=== PATIENT | female | born 1950 | race Caucasian/White ===

== ENCOUNTER 2019-01-27 16:37 | Emergency (ER) | payer MEDICAID ==
[~2019-01-27] VITALS: Ht 167.6 cm; Wt 77.0 kg
[2019-01-27 17:29] LABS: CLARITY,URINE CLOUDY (Clear); COLOR,URINE YELLOW (Yellow); GLUCOSE, URINE 500 mg/dl (Neg); KETONES,URINE NEGATIVE (Neg); LEUKOCYTE ESTERASE ,URINE LARGE (Neg); NITRITES, URINE POSITIVE (Neg); OCCULT BLOOD,URINE LARGE (Neg); PROTEIN,URINE 100 mg/dl (Neg); UROBILINOGEN,URINE 0.2 E.U/dL (0.2-1.0)
[2019-01-27 17:32] LABS: UA COLLECTION TYPE CLN CATCH MIDSTREAM
[2019-01-27 17:43] LABS: SQUAMOUS EPITHELIAL CELL,UR MANY /LPF (FEW)
[2019-01-27 17:45] LABS: BACTERIA,URINE 4+ /HPF (Neg); RBC,URINE TNTC /HPF (0-2); WBC,URINE TNTC /HPF (0-4)
[2019-01-27] MEDS ORDERED: normal saline 1000ML IV soln IVB ONE (18:00)
[2019-01-27] MEDS ORDERED: morphine 4 MG/ML inj SYRINge IV ONE (18:00)
[2019-01-27] MEDS ORDERED: famotidine/PF 10 mg/ml inj IV ONE (18:00)
[2019-01-27 18:42] LABS: BASOPHILS % (AUTO) 0.4 % (0-1); EOSINOPHILS # (AUTO) 0.1 X10'3 (0-0.9); EOSINOPHILS % (AUTO) 0.8 % (0-6); HEMATOCRIT 38.7 % (35.0-45.0); HEMOGLOBIN 13.2 g/dl (12.0-16.0); MEAN CORPUSCULAR HEMOGLOBIN 31.4 PG (27.0-31.0); MEAN CORPUSCULAR VOLUME 92.3 FL (78-98); MEAN PLATELET VOLUME 8.7 FL (7.4-10.4); MONOCYTES % (AUTO) 8.6 % (2-12); NEUTROPHILS % (AUTO) 82.2 % (42-75); PLATELET COUNT 244 X10'3 (140-440); RED BLOOD COUNT 4.19 X10'6 (4.20-5.60); RED CELL DISTRIBUTION WIDTH 13.7 % (11.5-14.5); WHITE BLOOD COUNT 12.2 X10'3 (4.5-11.0)
[2019-01-27 18:52] LABS: ALANINE AMINOTRANSFERASE 19 U/L (12-78); ALBUMIN 3.7 G/DL (3.4-5.0); ALBUMIN/GLOBULIN RATIO 0.9 (1.1-1.5); ALKALINE PHOSPHATASE 85 IU/L (46-116); ANION GAP 7 (8-16); ASPARTATE AMINO TRANSFERASE 20 U/L (10-37); BILIRUBIN,TOTAL 0.7 MG/DL (0.1-1.0); BLOOD UREA NITROGEN 14 MG/DL (7-18); BUN/CREATININE RATIO 17.3 (6.6-38.0); CALCIUM 9.7 MG/DL (8.5-10.1); CHLORIDE 107 MMOL/L (99-107); CREATININE 0.81 MG/DL (0.40-0.90); GLUCOSE 134 MG/DL (70-104); POTASSIUM 3.7 MMOL/L (3.5-5.1); SODIUM 144 MMOL/L (135-145); TOTAL PROTEIN 7.9 G/DL (6.4-8.2); eGFR 71 ML/MIN
[2019-01-27 19:41] LABS: CLARITY,URINE CLOUDY (Clear); COLOR,URINE YELLOW (Yellow); GLUCOSE, URINE 100 mg/dl (Neg); KETONES,URINE NEGATIVE (Neg); LEUKOCYTE ESTERASE ,URINE MODERATE (Neg); NITRITES, URINE NEGATIVE (Neg); OCCULT BLOOD,URINE LARGE (Neg); PROTEIN,URINE 30 mg/dl (Neg); UROBILINOGEN,URINE 0.2 E.U/dL (0.2-1.0)
[2019-01-27 19:46] LABS: BACTERIA,URINE 3+ /HPF (Neg); UA COLLECTION TYPE STRAIGHT CATH; WBC,URINE 50-100 /HPF (0-4)
[2019-01-27 19:47] LABS: SQUAMOUS EPITHELIAL CELL,UR FEW /LPF (FEW); WBC CLUMPS,URINE FEW /HPF (NEGATIVE)
[2019-01-27] MEDS ORDERED: CefTRIAXone/D5W-Rocephin 1gm 50 ML IV ONE (20:20)
[2019-01-27] MEDS ORDERED: SULF1TAB49 PO (21:05)
[2019-01-27 21:15] VITALS: BP 148/60
== END 2019-01-27 21:31 | disposition home or self-care (01) ==
LOC: ER 16:38
DX: N39.0 Urinary tract infection, site not specified (principal); R82.71 Bacteriuria; R42 Dizziness and giddiness; E11.9 Type 2 diabetes mellitus without complications; Z60.2 Problems related to living alone; Z79.2 Long term (current) use of antibiotics
CPT/HCPCS: 36415; 80053; 81001; 85025; 87077; 87088; 87186; 96361; 96365; 96375; 99283; J0696; J2270; J3490; J7040

== ENCOUNTER 2020-01-28 15:07 | Emergency (ER) | payer BC, MEDICARE ==
[~2020-01-28] VITALS: Ht 167.6 cm; Wt 165.0 kg
[2020-01-28 15:21] VITALS: BP 154/70
[2020-01-28] MEDS ORDERED: AZIT-63 PO (15:31)
== END 2020-01-28 15:53 | disposition home or self-care (01) ==
LOC: ER 15:09
DX: J40 Bronchitis, not specified as acute or chronic (principal); E11.9 Type 2 diabetes mellitus without complications; Z60.2 Problems related to living alone; Z79.899 Other long term (current) drug therapy
CPT/HCPCS: 99283

== ENCOUNTER 2020-07-16 19:57 | Inpatient (IN) | payer BC, MEDICARE ==
[~2020-07-16] VITALS: Ht 167.6 cm; Wt 72.7 kg
[2020-07-16] MEDS ORDERED: temazepam 15mg capsule PO PRN (21:00)
--- NOTE | 2020-07-16 21:26 | NUR ---
CT read completed. Dr. Liu ordering CT of spine now. Pt with family at bedside.
--- NOTE | 2020-07-16 22:08 | NUR ---
pt up to ambulating with front wheeled walker, daughter sba. Pt gonig to BR to provide urine sample.
[2020-07-16 22:18] LABS: BASOPHILS # (AUTO) 0.1 X10'3 (0-0.2); BASOPHILS % (AUTO) 0.8 % (0-1); EOSINOPHILS # (AUTO) 0.1 X10'3 (0-0.9); HEMATOCRIT 36.7 % (35.0-45.0); HEMOGLOBIN 12.6 g/dl (12.0-16.0); LYMPHOCYTES # (AUTO) 1.6 X10'3 (1.1-4.8); LYMPHOCYTES % (AUTO) 22.8 % (21-51); MEAN CORPUSCULAR HEMOGLOBIN 31.4 PG (27.0-31.0); MEAN CORPUSCULAR HGB CONC 34.3 g/dL (33.0-36.5); MEAN CORPUSCULAR VOLUME 91.7 FL (78-98); MEAN PLATELET VOLUME 9.2 FL (7.4-10.4); MONOCYTES # (AUTO) 0.5 X10'3 (0-0.9); MONOCYTES % (AUTO) 7.3 % (2-12); NEUTROPHILS # (AUTO) 4.8 X10'3 (1.8-7.7); NEUTROPHILS % (AUTO) 67.1 % (42-75); PLATELET COUNT 229 X10'3 (140-440); RED CELL DISTRIBUTION WIDTH 14.1 % (11.5-14.5); WHITE BLOOD COUNT 7.1 X10'3 (4.5-11.0)
[2020-07-16 22:21] LABS: CLARITY,URINE SLIGHTLY CLOUDY (Clear); COLOR,URINE YELLOW (Yellow); GLUCOSE, URINE NEGATIVE (Neg); KETONES,URINE NEGATIVE (Neg); LEUKOCYTE ESTERASE ,URINE SMALL (Neg); NITRITES, URINE POSITIVE (Neg); OCCULT BLOOD,URINE TRACE-INTACT (Neg); PROTEIN,URINE NEGATIVE (Neg); UROBILINOGEN,URINE 0.2 E.U/dL (0.2-1.0)
[2020-07-16 22:26] LABS: PARTIAL THROMBOPLASTIN TIME 27 SECONDS (22-32)
[2020-07-16 22:26] LABS: UA COLLECTION TYPE NON-SPECIFIED
[2020-07-16 22:27] LABS: BACTERIA,URINE 1+ /HPF (Neg); RBC,URINE 0-2 /HPF (0-2); SQUAMOUS EPITHELIAL CELL,UR FEW /LPF (FEW)
[2020-07-16 22:28] LABS: ALANINE AMINOTRANSFERASE 25 U/L (12-78); ALBUMIN 3.8 G/DL (3.4-5.0); ALKALINE PHOSPHATASE 69 IU/L (46-116); ANION GAP 11 (8-16); ASPARTATE AMINO TRANSFERASE 28 U/L (10-37); BILIRUBIN,TOTAL 0.7 MG/DL (0.1-1.0); BLOOD UREA NITROGEN 17 MG/DL (7-18); BUN/CREATININE RATIO 19.8 (6.6-38.0); C-REACTIVE PROTEIN 0.06 MG/DL (0.0-0.5); CALCIUM 9.7 MG/DL (8.5-10.1); CHLORIDE 106 MMOL/L (99-107); CREATININE 0.86 MG/DL (0.40-0.90); GLUCOSE 130 MG/DL (70-104); MAGNESIUM 1.9 MG/DL (1.5-2.4); POTASSIUM 3.6 MMOL/L (3.5-5.1); SODIUM 144 MMOL/L (135-145); TOTAL CARBON DIOXIDE 27.5 MMOL/L (24-32); TOTAL PROTEIN 7.6 G/DL (6.4-8.2); eGFR 66 ML/MIN
--- NOTE | 2020-07-16 22:40 | NUR ---
TELENEURO EVALUATION IN PROGRESS AT THIS TIME, PT FAMILY AT BEDSIDE.
--- NOTE | 2020-07-16 22:51 | NUR ---
TELENEURO EVALUATION COMPLETED, PT TOLERATED WELL.
[2020-07-16] MEDS ORDERED: SITA1TAB6 PO (23:25)
[2020-07-16] MEDS ORDERED: PIOG30TA71 PO (23:25)
[2020-07-16] MEDS ORDERED: LEVO25TA2 PO (23:30)
[2020-07-16] MEDS ORDERED: OXYB5TAB16 PO (23:30)
[2020-07-16] MEDS ORDERED: LOSA50TA3 PO (23:30)
[2020-07-16] MEDS ORDERED: LOVA40TA2 PO (23:30)
[2020-07-16] MEDS ORDERED: TRAZ-251 PO (23:33)
[2020-07-16] MEDS ORDERED: magnesium 2GM in 50ml NS 50 ML IV PRN (23:35)
[2020-07-16] MEDS ORDERED: HYDROcodone/acetaminophen 10/325mg tab PO PRN (23:35)
[2020-07-16] MEDS ORDERED: potassium Cl 20 mEq SR tablet PO PRN ×2 (23:35)
[2020-07-16] MEDS ORDERED: mag hydrox/Alum hydrox/simeth 30ml oral suspension PO PRN (23:35)
[2020-07-16] MEDS ORDERED: potassium Cl 40MEQ/1/2NS 520ml 520 ML IV PRN ×2 (23:35)
[2020-07-16] MEDS ORDERED: acetaminophen 325mg tablet PO PRN ×2 (23:35)
[2020-07-16] MEDS ORDERED: HYDROcodone/acetaminophen 5mg/325mg tablet PO PRN (23:35)
[2020-07-16] MEDS ORDERED: magnesium 4gm in 100ml NS 100 ML IV PRN (23:35)
[2020-07-16] MEDS ORDERED: magnesium Cl slow-release 64mg tablet PO PRN (23:35)
[2020-07-16] MEDS ORDERED: morphine 2 MG/ML inj. syringe IV PRN (23:35)
[2020-07-16] MEDS ORDERED: ondansetron/PF 4mg/2ml inj IV PRN (23:35)
--- NOTE | 2020-07-16 23:35 | NUR ---
DR. LEE AT BEDSIDE FOR ADMISSION. MED REC COMPLETED.
[2020-07-16] MEDS ORDERED: dextrose ORAL solution 15 GM/59 ML bottle PO PRN ×2 (23:55)
[2020-07-16] MEDS ORDERED: insulin Lispro (HumaLOG) vial - multi-dose SQ SCH (23:55)
[2020-07-16] MEDS ORDERED: glucagon, human recombinant 1mg kit SUBCUT PRN (23:55)
[2020-07-16] MEDS ORDERED: dextrose 50%-water 50ml dispensing syringe IV PRN ×2 (23:55)
[2020-07-17 00:03] LABS: HEMOGLOBIN A1C 6.8 % (4.5-6.2)
--- NOTE | 2020-07-17 00:17 | NUR ---
DAUGHTER, MICAH, CELL , LEAVING NOW. TAKING PTS WALLET WITH HER. PT AWAITING IPA.
--- NOTE | 2020-07-17 00:55 | NUR ---
dr cortez called to request pts evening meds, lisinopril and trazadone. Verbal received for these. also updated that Pts Med Rec is completed.
--- NOTE | 2020-07-17 00:59 | NUR ---
placed on hospital bed
[2020-07-17] MEDS ORDERED: lisinopril 20mg tablet PO ONE ×2 (01:00→01:15)
[2020-07-17] MEDS: traZODone 50mg tablet PO SCH ×2 (01:07→21:04)
[2020-07-17] MEDS: aspirin 81mg tab.chew PO SCH ×2 (01:07→07:41)
--- NOTE | 2020-07-17 01:11 | NUR ---
correction, pt take losartan hs, not lisinpril.
[2020-07-17] MEDS ORDERED: losartan 50mg tablet PO SCH (01:15)
[2020-07-17] MEDS: normal saline 1000ml 1,000 ML IV SCH ×2 (02:14→13:37)
[2020-07-17 03:30] LABS: BASOPHILS % (AUTO) 0.6 % (0-1); EOSINOPHILS # (AUTO) 0.2 X10'3 (0-0.9); EOSINOPHILS % (AUTO) 2.7 % (0-6); HEMATOCRIT 34.1 % (35.0-45.0); HEMOGLOBIN 11.5 g/dl (12.0-16.0); LYMPHOCYTES # (AUTO) 1.8 X10'3 (1.1-4.8); LYMPHOCYTES % (AUTO) 26.7 % (21-51); MEAN CORPUSCULAR HEMOGLOBIN 31.3 PG (27.0-31.0); MEAN CORPUSCULAR HGB CONC 33.8 g/dL (33.0-36.5); MEAN CORPUSCULAR VOLUME 92.6 FL (78-98); MEAN PLATELET VOLUME 9.1 FL (7.4-10.4); MONOCYTES # (AUTO) 0.6 X10'3 (0-0.9); MONOCYTES % (AUTO) 8.6 % (2-12); NEUTROPHILS # (AUTO) 4.1 X10'3 (1.8-7.7); NEUTROPHILS % (AUTO) 61.4 % (42-75); PLATELET COUNT 215 X10'3 (140-440); RED BLOOD COUNT 3.68 X10'6 (4.20-5.60); WHITE BLOOD COUNT 6.7 X10'3 (4.5-11.0)
[2020-07-17 03:41] LABS: ALANINE AMINOTRANSFERASE 24 U/L (12-78); ALBUMIN 3.4 G/DL (3.4-5.0); ALKALINE PHOSPHATASE 61 IU/L (46-116); ANION GAP 9 (8-16); ASPARTATE AMINO TRANSFERASE 22 U/L (10-37); BILIRUBIN,TOTAL 0.8 MG/DL (0.1-1.0); BLOOD UREA NITROGEN 17 MG/DL (7-18); CALCIUM 9.2 MG/DL (8.5-10.1); CHLORIDE 109 MMOL/L (99-107); CREATININE 0.68 MG/DL (0.40-0.90); GLUCOSE 123 MG/DL (70-104); MAGNESIUM 1.7 MG/DL (1.5-2.4); POTASSIUM 3.6 MMOL/L (3.5-5.1); SODIUM 144 MMOL/L (135-145); TOTAL CARBON DIOXIDE 26.3 MMOL/L (24-32); TOTAL PROTEIN 6.7 G/DL (6.4-8.2); eGFR 86 ML/MIN
[2020-07-17] MEDS: morphine 2 MG/ML inj. syringe IV PRN ×2 (03:49→15:12)
--- NOTE | 2020-07-17 03:50 | NUR ---
PT UP TO BR USNG WALKER AND AMBULATING WITH STEADY GAIT. VSS. AMERICO ARREGUIN. GIVEN MSIV 2 MG FOR 10 OTU OF 10 HAND AND FOOT PAIN.
[2020-07-17] MEDS: K and/or MAG REPLACEMENT MC SCH ×2 (07:04→20:00)
[2020-07-17] MEDS: levoTHYROXINE 25mcg tablet PO SCH (07:41)
[2020-07-17] MEDS: heparin, porcine 5000 units/ml vial SQ SCH ×2 (07:43→21:07)
[2020-07-17] MEDS: losartan 50mg tablet PO SCH (07:43)
[2020-07-17] MEDS: docusate sod 100mg capsule PO SCH ×3 (07:43→20:00)
[2020-07-17] MEDS ORDERED: LOVASTATIN PO SCH (08:00)
[2020-07-17 12:10] VITALS: BP 141/59
--- NOTE | 2020-07-17 12:10 | NUR ---
Patient in room ORTHO 4010. I have received report from BROOKLYN Caraballo and had the opportunity to ask questions and assume patient care.
[2020-07-17] MEDS ORDERED: GABA300C PO (15:05)
--- NOTE | 2020-07-17 15:15 | NUR ---
DM consult: Pt with A1c 6.8%, DM education not warranted at this time. Will continue to follow. Addendum: 07/17/20 at [address] Amended: Links added.
[2020-07-17 16:00] VITALS: BP 140/60
[2020-07-17] MEDS ORDERED: oxyCODONE/APAP 10/325mg tablet PO PRN (16:45)
[2020-07-17] MEDS ORDERED: oxyCODONE/APAP 5-325mg tablet PO PRN (16:45)
[2020-07-17 18:00] VITALS: BP 146/56
--- NOTE | 2020-07-17 18:20 | NUR ---
Problems reprioritized. Patient report given, questions answered & plan of care reviewed with BROOKLYN Bright.
--- NOTE | 2020-07-17 18:37 | NUR ---
Patient in room ORTHO 4010. I have received report from Krystina BARAHONA and had the opportunity to ask questions and assume patient care.
[2020-07-17] MEDS ORDERED: traZODone 50mg tablet PO SCH (21:00)
[2020-07-17] MEDS ORDERED: oxybutynin 5mg tablet PO SCH (21:00)
[2020-07-17] MEDS ORDERED: insulin glargine (Lantus) pen - multi-dose SQ SCH (21:00)
[2020-07-17] MEDS: gabapentin 300mg capsule PO SCH (21:04)
[2020-07-17 22:00] VITALS: BP_SYST 136; BP_DIAS 50; BP_DIAS 60
[2020-07-18 02:00] VITALS: BP 133/64
[2020-07-18] MEDS: normal saline 1000ml 1,000 ML IV SCH (03:10)
[2020-07-18 06:00] VITALS: BP 114/39
--- NOTE | 2020-07-18 06:12 | NUR ---
Problems reprioritized. Patient report given, questions answered & plan of care reviewed with MISAEL Delgadillo RN.
--- NOTE | 2020-07-18 06:39 | NUR ---
Patient in room ORTHO 4010. I have received report from BROOKLYN Bright and had the opportunity to ask questions and assume patient care.
[2020-07-18 07:04] LABS: BASOPHILS % (AUTO) 0.7 % (0-1); EOSINOPHILS # (AUTO) 0.1 X10'3 (0-0.9); EOSINOPHILS % (AUTO) 2.7 % (0-6); HEMATOCRIT 31.7 % (35.0-45.0); HEMOGLOBIN 11.1 g/dl (12.0-16.0); LYMPHOCYTES # (AUTO) 1.8 X10'3 (1.1-4.8); LYMPHOCYTES % (AUTO) 33.5 % (21-51); MEAN CORPUSCULAR HEMOGLOBIN 31.8 PG (27.0-31.0); MEAN CORPUSCULAR VOLUME 90.9 FL (78-98); MEAN PLATELET VOLUME 9.5 FL (7.4-10.4); MONOCYTES # (AUTO) 0.5 X10'3 (0-0.9); MONOCYTES % (AUTO) 8.6 % (2-12); NEUTROPHILS # (AUTO) 2.9 X10'3 (1.8-7.7); NEUTROPHILS % (AUTO) 54.5 % (42-75); PLATELET COUNT 201 X10'3 (140-440); RED BLOOD COUNT 3.49 X10'6 (4.20-5.60); RED CELL DISTRIBUTION WIDTH 13.9 % (11.5-14.5); WHITE BLOOD COUNT 5.4 X10'3 (4.5-11.0)
[2020-07-18 07:16] LABS: ALANINE AMINOTRANSFERASE 21 U/L (12-78); ALBUMIN 3.2 G/DL (3.4-5.0); ALKALINE PHOSPHATASE 55 IU/L (46-116); ANION GAP 8 (8-16); ASPARTATE AMINO TRANSFERASE 21 U/L (10-37); BILIRUBIN,TOTAL 0.8 MG/DL (0.1-1.0); BLOOD UREA NITROGEN 12 MG/DL (7-18); BUN/CREATININE RATIO 18.2 (6.6-38.0); CALCIUM 9.4 MG/DL (8.5-10.1); CHLORIDE 108 MMOL/L (99-107); CREATININE 0.66 MG/DL (0.40-0.90); GLUCOSE 138 MG/DL (70-104); MAGNESIUM 1.7 MG/DL (1.5-2.4); POTASSIUM 3.8 MMOL/L (3.5-5.1); SODIUM 144 MMOL/L (135-145); TOTAL CARBON DIOXIDE 28.5 MMOL/L (24-32); TOTAL PROTEIN 6.4 G/DL (6.4-8.2); eGFR 89 ML/MIN
[2020-07-18] MEDS: docusate sod 100mg capsule PO SCH (08:00)
[2020-07-18] MEDS: K and/or MAG REPLACEMENT MC SCH (08:00)
[2020-07-18] MEDS: gabapentin 300mg capsule PO SCH ×2 (09:34→13:33)
[2020-07-18] MEDS: aspirin 81mg tab.chew PO SCH (09:34)
[2020-07-18] MEDS: losartan 50mg tablet PO SCH (09:35)
[2020-07-18] MEDS: heparin, porcine 5000 units/ml vial SQ SCH (09:36)
[2020-07-18] MEDS: levoTHYROXINE 25mcg tablet PO SCH (09:37)
[2020-07-18 10:00] VITALS: BP 154/61
== END 2020-07-18 14:05 | disposition home or self-care (01) | DRG 93 ==
LOC: ER 19:57 → ED HOLD 23:35 → ORTHO 4S 07-17 12:00 → OBSVTOIN 07-17 14:00
PROVIDERS: ADMIT Internal Medicine; ATTEND Internal Medicine
DX: R20.2 Paresthesia of skin (principal); E03.9 Hypothyroidism, unspecified; E78.5 Hyperlipidemia, unspecified; G47.00 Insomnia, unspecified; E11.42 Type 2 diabetes mellitus with diabetic polyneuropathy; F32.9 Major depressive disorder, single episode, unspecified; I10 Essential (primary) hypertension; M48.02 Spinal stenosis, cervical region; M79.642 Pain in left hand; R26.9 Unspecified abnormalities of gait and mobility; M79.641 Pain in right hand; M48.061 Spinal stenosis, lumbar region without neurogenic claudication; R32 Unspecified urinary incontinence; Z79.84 Long term (current) use of oral hypoglycemic drugs; Z79.899 Other long term (current) drug therapy; Z88.8 Allergy status to other drugs, medicaments and biological substances; Z79.890 Hormone replacement therapy
CPT/HCPCS: 36415; 70450; 70544; 70551; 72125; 72131; 80053; 81001; 82948; 83036; 83605; 83735; 84145; 84443; 85025; 85610; 85651; 85730; 86140; 87040; 87077; 87081; 87088; 87186; 92508; 92616; 93880; 96374; 97162; 97530; 99285; G0378; J1644; J1815; J2270; J7030

== ENCOUNTER 2021-03-18 20:44 | Emergency (ER) | payer BC, MEDICARE ==
[~2021-03-18] VITALS: Ht 167.6 cm; Wt 72.7 kg
[~2021-03-18 20:44] MED LIST: GABA300C PO; LEVO25TA2 PO; LOSA50TA3 PO; LOVA40TA2 PO; OXYB5TAB16 PO; PIOG30TA71 PO; SITA1TAB6 PO; TRAZ-251 PO
[2021-03-18 21:14] VITALS: BP 176/72
[2021-03-18] MEDS ORDERED: BUDE180A INH (22:07)
[2021-03-18] MEDS ORDERED: AZIT250T27 PO (22:07)
== END 2021-03-18 22:20 | disposition home or self-care (01) ==
LOC: ER 20:46
DX: J40 Bronchitis, not specified as acute or chronic (principal); Z20.822 Contact with and (suspected) exposure to COVID-19; H92.09 Otalgia, unspecified ear; R05.3 Chronic cough; J02.9 Acute pharyngitis, unspecified; J44.9 Chronic obstructive pulmonary disease, unspecified; E11.9 Type 2 diabetes mellitus without complications; G89.29 Other chronic pain; Z98.890 Other specified postprocedural states; Z60.2 Problems related to living alone; Z88.1 Allergy status to other antibiotic agents; Z79.2 Long term (current) use of antibiotics; Z79.899 Other long term (current) drug therapy
CPT/HCPCS: 71045; 87635; 99284; C9803

== ENCOUNTER 2024-01-20 14:21 | Emergency (ER) | payer MEDICARE, MEDICAID ==
[~2024-01-20] VITALS: Ht 167.6 cm; Wt 77.5 kg
[~2024-01-20 14:21] MED LIST changes: +BUDE180A INH; +LOSA-416 PO; -LOSA50TA3 PO; -OXYB5TAB16 PO; +OXYB5TAB21 PO
[2024-01-20 15:26] LABS: BASOPHILS # (AUTO) 0.1 X10'3 (0-0.2); BASOPHILS % (AUTO) 0.7 % (0-1); EOSINOPHILS # (AUTO) 0.1 X10'3 (0-0.9); EOSINOPHILS % (AUTO) 1.7 % (0-6); HEMATOCRIT 37.6 % (35.0-45.0); HEMOGLOBIN 11.9 g/dl (12.0-16.0); LYMPHOCYTES # (AUTO) 2.3 X10'3 (1.1-4.8); LYMPHOCYTES % (AUTO) 29.1 % (21-51); MEAN CORPUSCULAR HEMOGLOBIN 28.1 PG (27.0-31.0); MEAN CORPUSCULAR HGB CONC 31.6 g/dL (33.0-36.5); MEAN CORPUSCULAR VOLUME 88.9 FL (78-98); MEAN PLATELET VOLUME 8.8 FL (7.4-10.4); MONOCYTES # (AUTO) 0.5 X10'3 (0-0.9); MONOCYTES % (AUTO) 6.3 % (2-12); NEUTROPHILS # (AUTO) 4.9 X10'3 (1.8-7.7); NEUTROPHILS % (AUTO) 62.2 % (42-75); PLATELET COUNT 343 X10'3 (140-440); RED BLOOD COUNT 4.23 X10'6 (4.20-5.60); RED CELL DISTRIBUTION WIDTH 15.1 % (11.5-14.5); WHITE BLOOD COUNT 7.9 X10'3 (4.5-11.0)
[2024-01-20 15:27] LABS: BILIRUBIN,URINE NEGATIVE (Neg); CLARITY,URINE SLIGHTLY CLOUDY (Clear); COLOR,URINE YELLOW (Yellow); GLUCOSE, URINE NEGATIVE (Neg); KETONES,URINE NEGATIVE (Neg); LEUKOCYTE ESTERASE ,URINE NEGATIVE (Neg); NITRITES, URINE NEGATIVE (Neg); OCCULT BLOOD,URINE TRACE-INTACT (Neg); PROTEIN,URINE TRACE mg/dl (Neg); UROBILINOGEN,URINE 0.2 E.U/dL (0.2-1.0)
[2024-01-20 15:28] LABS: UA COLLECTION TYPE CLN CATCH MIDSTREAM
[2024-01-20 15:36] LABS: ALANINE AMINOTRANSFERASE 22 U/L (12-78); ALBUMIN 4.3 G/DL (3.4-5.0); ALKALINE PHOSPHATASE 179 IU/L (46-116); ANION GAP 13 (8-16); ASPARTATE AMINO TRANSFERASE 22 U/L (10-37); BILIRUBIN,TOTAL 1.5 MG/DL (0.1-1.0); BLOOD UREA NITROGEN 19 MG/DL (7-18); CALCIUM 9.1 MG/DL (8.5-10.1); CHLORIDE 102 MMOL/L (99-107); GLUCOSE 160 MG/DL (70-104); LIPASE 25 U/L (16-77); POTASSIUM 3.8 MMOL/L (3.5-5.1); SODIUM 138 MMOL/L (135-145); TOTAL CARBON DIOXIDE 22.7 MMOL/L (24-32); TOTAL PROTEIN 8.6 G/DL (6.4-8.2); eCRCL 48 ML/MIN; eGFR 55 ML/MIN
[2024-01-20 15:46] LABS: BACTERIA,URINE FEW /HPF (Neg); MUCUS STRANDS FEW /LPF (Neg); RBC,URINE 0-2 /HPF (0-2); SQUAMOUS EPITHELIAL CELL,UR MANY /LPF (FEW); WBC,URINE 0-4 /HPF (0-4)
[2024-01-20] MEDS: HYDROcodone/acetaminophen 5mg/325mg tablet PO ONE (18:42)
[2024-01-20] MEDS ORDERED: METH-798 PO (20:34)
[2024-01-20] MEDS ORDERED: HYDR-3965 PO (20:34)
[2024-01-20] MEDS: ketorolac trometh 15mg/ml vial 15 MG/ML ML IM ONE (20:45)
[2024-01-20 20:48] VITALS: BP 149/79; PULSE 64; RESP 16; TEMP 98.4; O2SAT 98
== END 2024-01-20 20:50 | disposition home or self-care (01) ==
LOC: ER 14:21
DX: M54.50 Low back pain, unspecified (principal); E11.9 Type 2 diabetes mellitus without complications; J44.9 Chronic obstructive pulmonary disease, unspecified; G89.29 Other chronic pain; M54.9 Dorsalgia, unspecified; Z88.0 Allergy status to penicillin; Z79.51 Long term (current) use of inhaled steroids; Z79.899 Other long term (current) drug therapy; Z98.890 Other specified postprocedural states; Z60.2 Problems related to living alone
CPT/HCPCS: 36415; 74176; 76700; 80053; 81001; 83690; 85025; 96372; 99285; J1885